=== PATIENT | female | born 1950 | race Caucasian/White ===

== ENCOUNTER 2016-11-25 04:15 | Inpatient (IN) | payer MEDICARE, OTHER ==
[2016-11-25] MEDS ORDERED: HYDROmorphone 1 MG/ML 1 ML SYRINGE IVP STA ×3 (05:09→08:04)
[2016-11-25 05:49] LABS: Basophils # (A) 0.1 k/uL (0-0.2); Basophils % (A) 0 %; CHCM 33.9; Eosinophils # (A) 0.2 k/uL (0-0.7); Eosinophils % (A) 2 %; HCT 41.8 % (34.0-46.0); HDW 2.54; HGB 13.9 gm/dL (11.4-16.0); Luc # (Auto) 0.12; Luc % (Auto) 1; Lymphocytes # (A) 1.8 k/uL (1.0-4.8); Lymphocytes % (A) 14 %; MCH 30.5 pg (25.0-35.0); MCHC 33.2 g/dL (31.0-37.0); MCV 91.8 fL (80.0-100.0); Mean Platelet Volume 7.6; Monocytes # (A) 0.5 k/uL (0-1.0); Monocytes % (A) 4 %; Neutrophils # (A) 10.6 k/uL (1.3-7.7); Neutrophils % (A) 79 %; RBC 4.56 m/uL (3.80-5.40); RDW 13.1 % (11.5-15.5); WBC 13.4 k/uL (3.8-10.6); WBC (Perox) 13.39
[2016-11-25 06:02] LABS: ALT 125 U/L (9-52); AST 67 U/L (14-36); Alkaline Phosphatase 174 U/L (38-126); Amylase <30 U/L (30-110); Anion Gap 15 mmol/L; Blood Urea Nitrogen 15 mg/dL (7-17); Calcium 9.7 mg/dL (8.4-10.2); Carbon Dioxide 22 mmol/L (22-30); Chloride 106 mmol/L (98-107); Glucose 124 mg/dL (74-99); Non-African American GFR(MDRD) >60 (>60 ml/min/1.73 sqM); Potassium 4.1 mmol/L (3.5-5.1); Sodium 143 mmol/L (137-145); Total Bilirubin 0.8 mg/dL (0.2-1.3)
--- NOTE | 2016-11-25 06:19 | CT ---
EXAMINATION TYPE: CT abdomen pelvis wo con DATE OF EXAM: 11/25/2016 5:51 AM COMPARISON: NONE HISTORY: epigastric pain, renal stone protocol CT DLP: 563.00 mGycm Automated exposure control for dose reduction was used. TECHNIQUE: Helical acquisition of images was performed from the lung bases through the pelvis. FINDINGS: LUNG BASES: No significant abnormality is appreciated. LIVER/GB: No significant abnormality is appreciated in the liver. Moderate fluid distention of gallbl adder is noted.. PANCREAS: No significant abnormality is seen. SPLEEN: No significant abnormality is seen. ADRENALS: No significant abnormality is seen. KIDNEYS: Right kidney showed multiple cystic changes in the right renal pelvis and are most likely related to peripelvic cysts rather than hydronephrosis. Right ureter is not distended. No definite obstructing o r nonobstructing opaque stones are noted in the right kidney and right ureter. Left kidney showed cystic changes in the left renal pelvis and are most likely related to parapelvic cysts rather than hydronephrosis. The left ureter is not distended. No definite obstructing opaque st ones are noted in the left kidney and left ureter. RETROPERITONEAL ADENOPATHY: None visualized . Diffuse atherosclerotic calcification is noted in the abdominal aorta and iliac arteries. REPRODUCTIVE ORGANS: Uterus appears grossly unremarkable. Ovaries are not visualized. URINARY BLADDER: No significant abnormality is seen. PELVIC ADENOPATHY: None visualized. OSSEOUS STRUCTURES: Mild degenerative changes are present in the thoracolumbar spine. BOWEL: There is moderate to large amount of fecal material in the colon and patient is constipated. Appendix is not well visualized. Mild fluid distention of small bowel loops is noted without signific ant obstruction. OTHER: Small fat-containing umbilical hernia is noted. IMPRESSION: 1. BOTH KIDNEYS SHOWED CYSTIC CHANGES AND ARE MOST LIKELY RELATED TO LARGE PERIPELVIC CYSTS RATHER TH AN HYDRONEPHROSIS WITHOUT DEFINITE OPAQUE NONOBSTRUCTING OR OBSTRUCTING STONES. BILATERAL URETERS ARE NOT FLUID DISTENDED. A CT SCAN WITH IV CONTRAST WOULD BE BENEFICIAL IN THE EVALUATION TO EXCLUDE HYD RONEPHROSIS AND EVALUATION OF PERIPELVIC CYSTS.. 2. MODERATE FLUID DISTENTION OF GALLBLADDER IS NOTED. 3. PATIENT IS CONSTIPATED.
--- NOTE | 2016-11-25 06:58 | ED ---
Abdominal Pain HPI - General Source: patient, family Mode of arrival: ambulatory Limitations: no limitations - History of Present Illness MD Complaint: abdominal pain Onset/Timin -: hour(s) Location: RUQ, epigastric Radiation: back Severity: severe Quality: aching, sharp Consistency: constant Improves With: nothing Worsens With: nothing Associated Symptoms: other (Bloating) <Huang Sky - Last Filed: 11/25/16 06:58> <Kirk Rodriguez - Last Filed: 11/25/16 09:06> - General Chief Complaint: Abdominal Pain Stated Complaint: Abdominal Pain Time Seen by Provider: 11/25/16 05:04 - History of Present Illness Initial Comments: Patient's a 65-year-old woman who presents with pain in the upper abdomen and right upper quadrant that radiates to her back. The patient states that it started around 7 while she was watching television. The patient states that she had a similar episode of this between 2 and 3 years ago and was told that this was related to her gallbladder. The patient denies fever or chills. She has not had vomiting. No change in bowel movements, the last of which was tonight and there was no blood. No change in urination. There is no chest pain , shortness of breath, or diaphoresis. (Huang Sky) - Related Data Home Medications Medication Instructions Recorded Confirmed Multivitamins, Thera [Multivitamin] 1 tab PO DAILY 09/19/16 11/25/16 Oxybutynin Chloride [Ditropan XL] 15 mg PO HS 09/19/16 11/25/16 Pantoprazole Sodium [Protonix] 40 mg PO HS 09/19/16 11/25/16 Thyroid,Pork [Nature-Throid] 65 mg PO HS 09/19/16 11/25/16 Aspirin EC [Ecotrin Low Dose] 81 mg PO DAILY 10/14/16 11/25/16 Biotin 10,000 mcg PO DAILY 10/14/16 11/25/16 amLODIPine BESYLATE [Norvasc] 2.5 mg PO DAILY 11/25/16 11/25/16 Previous Rx's Medication Instructions Recorded Atorvastatin [Lipitor] 80 mg PO HS #30 tab 09/23/16 Nitroglycerin Sl Tabs [Nitrostat] 0.4 mg SUBLINGUAL Q5M PRN #25 tab 09/23/16 Prasugrel [Effient] 10 mg PO DAILY #30 tab 09/23/16 Allergies Allergy/AdvReac Type Severity Reaction Status Date / Time ibuprofen Allergy Itching Verified 11/25/16 04:41 sulfamethoxazole Allergy Rash/Hives Verified 11/25/16 04:41 [From Bactrim] trimethoprim [From Bactrim] Allergy Rash/Hives Verified 11/25/16 04:41 Review of Systems ROS Other: All systems not noted in ROS Statement are negative. Constitutional: Denies: fever, chills Respiratory: Denies: cough, dyspnea Cardiovascular: Denies: chest pain, palpitations, edema Gastrointestinal: Reports: as per HPI, abdominal pain. Denies: vomiting, diarrhea, constipation, melena, hematochezia Genitourinary: Denies: dysuria, hematuria Musculoskeletal: Reports: as per HPI, back pain Skin: Denies: rash Neurological: Denies: headache, weakness, numbness <Huang Sky - Last Filed: 11/25/16 06:58> ROS Other: All systems not noted in ROS Statement are negative. <Kirk Rodriguez - Last Filed: 11/25/16 09:06> ROS Statement: Those systems with pertinent positive or pertinent negative responses have been documented in the HPI. Past Medical History Past Medical History: Coronary Artery Disease (CAD), Cancer, GERD/Reflux, Myocardial Infarction ([place]), Osteoarthritis (OA), Pneumonia, Thyroid Disorder Additional Past Medical History / Comment(s): 09/19/16 coronary stents x3, T- cell lymphoma, 10/08/16 left knee drained Last Myocardial Infarction Date:: 09/19/16 History of Any Multi-Drug Resistant Organisms: None Reported Past Surgical History: Joint Replacement, Tubal Ligation Additional Past Surgical History / Comment(s): left knee, left shoulder, left breast removed scar tissue from breast reduction 08/22/16. Lens implants to bilat. eyes. Novasure Past Anesthesia/Blood Transfusion Reactions: No Reported Reaction Past Psychological History: No Psychological Hx Reported Smoking Status: Former smoker Past Alcohol Use History: None Reported Past Drug Use History: None Reported - Past Family History Mother Family Medical History: Dementia Father Family Medical History: Cancer Additional Family Medical History / Comment(s): colon-surgery <Huang Sky - Last Filed: 11/25/16 06:58> General Exam Limitations: no limitations General appearance: alert, in distress, obese Head exam: Present: atraumatic, normocephalic Eye exam: Present: normal appearance. Absent: scleral icterus, conjunctival injection ENT exam: Present: normal oropharynx Neck exam: Present: normal inspection, full ROM Respiratory exam: Present: normal lung sounds bilaterally. Absent: respiratory distress, wheezes, rales, rhonchi, stridor Cardiovascular Exam: Present: regular rate, normal rhythm, normal heart sounds. Absent: systolic murmur, diastolic murmur, rubs, gallop GI/Abdominal exam: Present: soft, tenderness, normal bowel sounds. Absent: distended, guarding, rebound, mass, pulsatile mass, hernia Extremities exam: Present: normal inspection, normal capillary refill. Absent: pedal edema, calf tenderness Back exam: Present: normal inspection. Absent: CVA tenderness (R), CVA tenderness (L) Neurological exam: Present: alert Skin exam: Present: warm, dry, intact, normal color. Absent: rash, cyanosis, diaphoretic, erythema, petechiae, pallor, mottled <Huang Sky - Last Filed: 11/25/16 06:58> Medical Decision Making - Lab Data Result diagrams: 11/25/16 05:43 11/25/16 05:43 <Huang Sky - Last Filed: 11/25/16 06:58> - Lab Data Result diagrams: 11/25/16 05:43 11/25/16 05:43 <Kirk Rodriguez - Last Filed: 11/25/16 09:06> - Medical Decision Making I went back into reevaluate the patient patient continued to have intermittent abdominal pain. Patient also urinary tract infection which I gave her Rocephin for. But because the pain was coming back so so continuously and severely I felt that the patient needed to be admitted and seen by a surgeon. (Kirk Rodriguez) - Lab Data Lab Results 11/25/16 11/25/16 11/25/16 Range/Units 05:43 05:43 05:43 WBC 13.4 H (3.8-10.6) k/uL RBC 4.56 (3.80-5.40) m/uL Hgb 13.9 (11.4-16.0) gm/dL Hct 41.8 (34.0-46.0) % MCV 91.8 (80.0-100.0) fL MCH 30.5 (25.0-35.0) pg MCHC 33.2 (31.0-37.0) g/dL RDW 13.1 (11.5-15.5) % Plt Count 241 (150-450) k/uL Neutrophils % 79 % Lymphocytes % 14 % Monocytes % 4 % Eosinophils % 2 % Basophils % 0 % Neutrophils # 10.6 H (1.3-7.7) k/uL Lymphocytes # 1.8 (1.0-4.8) k/uL Monocytes # 0.5 (0-1.0) k/uL Eosinophils # 0.2 (0-0.7) k/uL Basophils # 0.1 (0-0.2) k/uL Sodium 143 (137-145) mmol/L Potassium 4.1 (3.5-5.1) mmol/L Chloride 106 (98-107) mmol/L Carbon Dioxide 22 (22-30) mmol/L Anion Gap 15 mmol/L BUN 15 (7-17) mg/dL Creatinine 0.63 (0.52-1.04) mg/dL Est GFR (MDRD) Af Amer >60 (>60 ml/min/1.73 sqM) Est GFR (MDRD) Non-Af >60 (>60 ml/min/1.73 sqM) Glucose 124 H (74-99) mg/dL Calcium 9.7 (8.4-10.2) mg/dL Total Bilirubin 0.8 (0.2-1.3) mg/dL AST 67 H (14-36) U/L ALT 125 H (9-52) U/L Alkaline Phosphatase 174 H (38-126) U/L Troponin I <0.012 (0.000-0.034) ng/mL Total Protein 7.0 (6.3-8.2) g/dL Albumin 4.5 (3.5-5.0) g/dL Amylase <30 L (30-110) U/L Lipase 80 (23-300) U/L Urine Color Urine Appearance (Clear) Urine pH (5.0-8.0) Ur Specific [place] (1.001-1.035) Urine Protein (Negative) Urine Glucose (UA) (Negative) Urine Ketones (Negative) Urine Blood (Negative) Urine Nitrate (Negative) Urine Bilirubin (Negative) Urine Urobilinogen (<2.0) mg/dL Ur Leukocyte Esterase (Negative) Urine RBC (0-5) /hpf Urine WBC (0-5) /hpf Ur Squamous Epith Cells (0-4) /hpf Amorphous Sediment (None) /hpf Urine Mucus (None) /hpf 11/25/16 Range/Units 06:50 WBC (3.8-10.6) k/uL RBC (3.80-5.40) m/uL Hgb (11.4-16.0) gm/dL Hct (34.0-46.0) % MCV (80.0-100.0) fL MCH (25.0-35.0) pg MCHC (31.0-37.0) g/dL RDW (11.5-15.5) % Plt Count (150-450) k/uL Neutrophils % % Lymphocytes % % Monocytes % % Eosinophils % % Basophils % % Neutrophils # (1.3-7.7) k/uL Lymphocytes # (1.0-4.8) k/uL Monocytes # (0-1.0) k/uL Eosinophils # (0-0.7) k/uL Basophils # (0-0.2) k/uL Sodium (137-145) mmol/L Potassium (3.5-5.1) mmol/L Chloride (98-107) mmol/L Carbon Dioxide (22-30) mmol/L Anion Gap mmol/L BUN (7-17) mg/dL Creatinine (0.52-1.04) mg/dL Est GFR (MDRD) Af Amer (>60 ml/min/1.73 sqM) Est GFR (MDRD) Non-Af (>60 ml/min/1.73 sqM) Glucose (74-99) mg/dL Calcium (8.4-10.2) mg/dL Total Bilirubin (0.2-1.3) mg/dL AST (14-36) U/L ALT (9-52) U/L Alkaline Phosphatase (38-126) U/L Troponin I (0.000-0.034) ng/mL Total Protein (6.3-8.2) g/dL Albumin (3.5-5.0) g/dL Amylase (30-110) U/L Lipase (23-300) U/L Urine Color Yellow Urine Appearance Cloudy H (Clear) Urine pH 5.0 (5.0-8.0) Ur Specific [place] 1.023 (1.001-1.035) Urine Protein Trace H (Negative) Urine Glucose (UA) Negative (Negative) Urine Ketones Negative (Negative) Urine Blood Negative (Negative) Urine Nitrate Positive H (Negative) Urine Bilirubin Negative (Negative) Urine Urobilinogen <2.0 (<2.0) mg/dL Ur Leukocyte Esterase Large H (Negative) Urine RBC 7 H (0-5) /hpf Urine WBC 9 H (0-5) /hpf Ur Squamous Epith Cells 3 (0-4) /hpf Amorphous Sediment Rare H (None) /hpf Urine Mucus Occasional H (None) /hpf Disposition <Huang Sky - Last Filed: 11/25/16 06:58> Time of Disposition: 09:03 <Kirk Rodriguez - Last Filed: 11/25/16 09:06> Clinical Impression: Abdominal pain, Urinary tract infection Disposition: ADMITTED IP TO THIS HOSP Referrals: James Son MD [Primary Care Provider] - 1-2 days
[2016-11-25 07:18] LABS: Amorphous Sediment,Urine Rare /hpf; Appearance,Urine Cloudy (Clear); Bilirubin,Urine Negative (Negative); Glucose,Urine (UA) Negative (Negative); Ketones,Urine Negative (Negative); Leukocyte Esterase,Urine Large (Negative); Mucus,Urine Occasional /hpf; Nitrite,Urine Positive (Negative); Particle Count 17046; Protein,Urine Trace (Negative); RBC,Urine 7 /hpf (0-5); Specific Gravity,Urine 1.023 (1.001-1.035); Squamous Epithelial Cell,Urine 3 /hpf (0-4); UA Billing (MACRO vs. MICRO) MICRO; Urobilinogen,Urine <2.0 mg/dL (<2.0); WBC,Urine 9 /hpf (0-5)
--- NOTE | 2016-11-25 08:12 | US ---
EXAMINATION TYPE: US abdomen limited DATE OF EXAM: 11/25/2016 7:55 AM COMPARISON: on PACS CLINICAL HISTORY: Pain, attention RUQ. Epigastric pain EXAM MEASUREMENTS: Liver Length: 14.0 cm Gallbladder Wall: 0.2 cm CBD: 0.4 cm Right Kidney: 9.7 x 6.1 x 5.7 cm TECHNOLOGIST IMPRESSION: Pancreas: echogenic, tail not well seen due to overlying bowel gas Liver: wnl Gallbladder: multiple mobile echogenic foci Evidence for sonographic Burns's sign: neg CBD: wnl Right Kidney: multiple cystic lesions in medial hilum, largest = 2.1 x 1.1 cm . Hydronephrosis is n ot identified. IMPRESSION: 1. Cholelithiasis. 2. Right renal peripelvic cysts.
[2016-11-25] MEDS ORDERED: SODIUM CHLORIDE 0.9% 1,000 ML IV ONE ×2 (08:42→09:04)
[2016-11-25] MEDS ORDERED: ONDANSETRON 4 MG/2 ML VIAL IVP PRN (09:05)
[2016-11-25 10:14] VITALS: BMI 33.3
[2016-11-25] MEDS: HYDROmorphone 1 MG/ML 1 ML SYRINGE IVP PRN (12:45)
--- NOTE | 2016-11-25 13:44 | P.GSCN ---
History of Present Illness Consult date: 11/25/16 Reason for Consult: Epigastric and right upper quadrant abdominal pain Requesting physician: Manuelito Wilkinson History of present illness: The patient is a 65-year-old female who comes with history of coronary artery disease with 3 stents placed in September 2016. She reports known history of gallstones which occurred many years ago. At that time, she avoid surgical intervention for fear of postcholecystectomy diarrhea. She has a strong family history of gallbladder disease in her mother including her daughter and granddaughter, all of whom needed a cholecystectomy. She reports severe epigastric including right upper quadrant abdominal pain that radiated to her back after eating chili yesterday. She has been unable to take her medications morning which includes Effient for her cardiac stent. She reports occasional constipation. No recent blood in stools. She has known history of gastroesophageal reflux disease and takes Protonix daily including a history of hiatal hernia. With her ultrasound findings demonstrating gallstones, Gen. surgery is consulted. Review of Systems CONSTITUTIONAL: Denies any fever or chills. Weight loss of 45 pounds intentional in 1 year. She struggles with obesity. HEENT: Denies any trouble with vision, hearing or nosebleeds. No difficulty swallowing. LYMPHATIC: The patient denies any lumps and bumps around the neck. ENDOCRINE: Has thyroid disorders. Denies any blood sugar glucose intolerance. RESPIRATORY: Denies pneumonia. Denies any troubles with breathing or dyspnea on exertion. CARDIOVASCULAR: Previous history of heart attack with cardiac stent placement September 2016. She reports recent cardiac spasm 10/14/2016. GASTROINTESTINAL: Has heart burn, constipation. No recent bright red blood per rectum. Takes Protonix for GERD. Has history of hiatal hernia. GENITOURINARY: Denies any blood in urine or increased urinary frequency. MUSCULOSKELETAL: Has back pain, stiffness or joint arthritis. NEUROLOGIC: Denies any numbness or tingling along the distal extremities. No seizure disorders or headaches. PSYCHIATRIC: Denies depression or suidical ideation. HEMATOLOGIC: Denies any abnormal bleeding or bruising. Past Medical History Past Medical History: Coronary Artery Disease (CAD), Cancer, GERD/Reflux, Myocardial Infarction ([place]), Osteoarthritis (OA), Thyroid Disorder Additional Past Medical History / Comment(s): 09/19/16 coronary stents x3, T- cell lymphoma, 10/08/16 left knee drained Last Myocardial Infarction Date:: 09/19/16 History of Any Multi-Drug Resistant Organisms: None Reported Past Surgical History: Joint Replacement, Tubal Ligation Additional Past Surgical History / Comment(s): left knee, left shoulder, left breast removed scar tissue from breast reduction 08/22/16. Lens implants to bilat. eyes. Novasure. EGD Past Anesthesia/Blood Transfusion Reactions: No Reported Reaction Past Psychological History: No Psychological Hx Reported Smoking Status: Former smoker Past Alcohol Use History: None Reported Past Drug Use History: None Reported - Past Family History Mother Family Medical History: Dementia Father Family Medical History: Cancer Additional Family Medical History / Comment(s): colon-surgery Medications and Allergies Home Medications Medication Instructions Recorded Confirmed Type Multivitamins, Thera [Multivitamin] 1 tab PO DAILY 09/19/16 11/25/16 History Oxybutynin Chloride [Ditropan XL] 15 mg PO HS 09/19/16 11/25/16 History Pantoprazole Sodium [Protonix] 40 mg PO HS 09/19/16 11/25/16 History Thyroid,Pork [Nature-Throid] 65 mg PO HS 09/19/16 11/25/16 History Aspirin EC [Ecotrin Low Dose] 81 mg PO DAILY 10/14/16 11/25/16 History Biotin 10,000 mcg PO DAILY 10/14/16 11/25/16 History amLODIPine BESYLATE [Norvasc] 2.5 mg PO DAILY 11/25/16 11/25/16 History Allergies Allergy/AdvReac Type Severity Reaction Status Date / Time ibuprofen Allergy Itching Verified 11/25/16 12:08 sulfamethoxazole Allergy Rash/Hives Verified 11/25/16 12:08 [From Bactrim] trimethoprim [From Bactrim] Allergy Rash/Hives Verified 11/25/16 12:08 Surgical - Exam Vital Signs Temp Pulse Resp BP Pulse Ox 97.4 F L 65 18 170/77 99 11/25/16 04:39 11/25/16 04:39 11/25/16 04:39 11/25/16 04:39 11/25/16 04:39 GENERAL: Well developed and in no acute distress. Pleasant. HEENT: No sclera icterus. Extraocular movements grossly intact. Moist buccal mucosa. Head is atraumatic, normocephalic. Hears conversational speech. No nasal drainage. NECK: Supple without lymphadenopathy. No JV distention. CHEST: Non-labored respirations and equal bilateral excursions. CARDIOVASCULAR: Regular rate and rhythm. Palpable 2+ radial pulses. ABDOMEN: Soft. Nondistended. Had tenderness along her epigastrium. No peritonitis. MUSCULOSKELETAL: No clubbing, cyanosis or edema. NEUROLOGIC: No focal or lateralizing signs. PSYCH: Appropriate affect. Alert and oriented to person, place and time. Results - Labs 11/25/16 05:43 11/25/16 05:43 - Imaging US - abdomen: report reviewed, image reviewed (FIndings consistent with multiple gallstones) Assessment and Plan (1) Acute cholecystitis due to biliary calculus Status: Acute (2) Coronary artery disease Status: Chronic (3) Stented coronary artery Status: Chronic (4) Hiatal hernia Status: Chronic (5) Weight loss Status: Chronic (6) GERD (gastroesophageal reflux disease) Status: Chronic (7) Family history of gallbladder disease Status: Chronic (8) Antiplatelet or antithrombotic long-term use Status: Chronic (9) History of myocardial infarction Status: Chronic (10) Obesity (BMI 30.0-34.9) Status: Chronic (11) Epigastric abdominal pain Status: Acute (12) Right upper quadrant abdominal pain Status: Acute (13) Leukocytosis Status: Acute Plan: 1. She is on Effient and has acute cholecystitis. Recommend continue IV antibiotics. 2. Recommend consultation to cardiology as she had just seen a gripper installer with the last 3 weeks. 3. Recommend urgent surgery performed preferable before discharge. She is on antiplatelet therapy for which 1 year of therapy was discussed between the patient and her gripper installer otherwise through September 2017. 4. Risk of gallstones including pancreatitis and biliary obstruction were also reviewed in detail. 5. In the interim low-fat diet. 6. She is high risk of bleeding with surgery as her presentation is urgent from her acute cholecystitis. 7. Will follow pending recommendations from cardiology,whom her gripper installer is Dr. Wood. Thank you for allowing me to participate in the care of your patient.
[2016-11-25] MEDS ORDERED: NITROGLYCERIN SL TABS 0.4 MG TAB SUBLINGUAL PRN (14:36)
[2016-11-25] MEDS ORDERED: PRASUGREL 10 MG TAB PO SCH (14:45)
--- NOTE | 2016-11-25 15:26 | P.PN ---
Progress Note - Text Discussed case with Dr. Wilkinson Patient had an acute myocardial infarction in the month of September,. A drug-eluting stent was placed. She's now on aspirin and Effient If it is clinically appropriate to operate on her within the next 2 months then preferably be performed on antiplatelet therapy High risk of stent thrombosis if antiplatelet agents stopped
--- NOTE | 2016-11-25 15:44 | P.PN ---
Progress Note - Text I was contacted by the patient's admitting attending upon consultation with senior biostatistician. The patient is high risk for thrombosis of her stent. Her abdominal pain has improved. She has high cardiac risk including high surgical risk at this time. Alternatives including transfer to a tertiary care center for reversal of Effient was also reviewed. In light of her cardiac history, I have placed patient on a no fat diet with literature dispensed. This should decrease risk for additional attacks. Appreciate cardiology input. May start clear liquid diet low fat.
[2016-11-25] MEDS: ENOXAPARIN 40 MG/0.4 ML SYRINGE SQ SCH (16:08)
[2016-11-25] MEDS: amLODIPine 2.5 MG TAB PO SCH (16:08)
[2016-11-25] MEDS: PRASUGREL 10 MG TAB PO SCH (16:08)
--- NOTE | 2016-11-25 16:24 | HP ---
DATE OF ADMISSION: 11/25/2016 PRESENTING COMPLAINT: Epigastric pain. HISTORY OF PRESENTING COMPLAINT: This is a very pleasant 65-year-old patient of Dr. Son. Patient initially presented on 09/20/2016 and 09/22/2016, underwent successful stenting of the mid-left circumflex following acute inferior ST elevation myocardial infarction. Patient had presented again on 10/15/2016, and because of chest pain, underwent a repeat cardiac catheterization. No further intervention was done. This was done by Dr. Wood. Patient's stable medical conditions include GERD, hypothyroidism, urinary stress incontinence, obesity. Patient presents with one day of increasing epigastric pain, rather constant aching with no short of breath. No dizziness. No sweating, nausea. GERD has been bothering her and patient also been having pain on the right part of the abdomen, which is a bowel or urine. No vomiting. No fever, no precordial pain. REVIEW OF SYSTEMS: CONSTITUTIONAL: Tired. HEENT: None. RESPIRATORY: None. CARDIOVASCULAR: None. GASTROINTESTINAL: As above. GENITOURINARY: None. MUSCULOSKELETAL: None. DERMATOLOGICAL: None. HEMATOLOGICAL: None. LYMPHATICS: None. PSYCHIATRY: None. NEUROLOGICAL: None. Past history of myocardial infarction and with intervention to the RCA and circumflex in September of 2016, GERD, chronic hypothyroidism, chronic urinary stress incontinence. Obesity body mass index of 36.1. PAST SURGICAL HISTORY: Joint replacement, tubal ligation in the left knee, left shoulder, left breast removed, scar tissue from breast reduction, lens implant bilateral eyes. SOCIAL HISTORY: Patient is , stopped smoking about 10 - 12 days ago. FAMILY HISTORY: Reviewed, noncontributory to presentation. HOME MEDICATIONS: 1. Norvasc 2.5 p.o. daily. 2. Nature-Throid 65 mg p.o. q.h.s. 3. Effient 10 mg p.o. daily. 4. Protonix 40 mg q.h.s. 5. Ditropan XL 50 mg p.o. q.h.s. 6. Nitrostat 0.4 sublingual q.5 p.r.n. 7. Multivitamin 1 tablet p.o. daily. 8. Lipitor 80 mg p.o. q.h.s. 9. Aspirin 81 mg p.o. daily. Allergies to IBUPROFEN and BACTRIM. On examination, vital signs on presentation: Temperature 97.4, pulse 65, respiration 18, blood pressure 170/77, pulse ox 99% on room air. GENERAL APPEARANCE: Well built, BMI of 32.3, weak, tired-appearing. EYES: Pupils equal, conjunctivae normal. HEENT: Oral cavity normal. NECK: JVD not raised. Mass not palpable. Respiratory effort normal. LUNGS: Fair air entry. CARDIOVASCULAR: First and second sounds normal. No edema. ABDOMEN: Soft, mild epigastric tenderness. No obvious epigastric pain. Mild tenderness. No guarding or rigidity. Liver and spleen not palpable. LYMPHATIC: No lymph node palpable in neck or axillae. PSYCHIATRY: Alert and oriented x3. Mood and affect normal. NEUROLOGICAL: Pupils equal. Cranial nerves grossly intact. Power and sensation grossly intact. INVESTIGATIONS: White count 13.4, hemoglobin 13.9, potassium 4.1. Creatinine is normal, AST 67, ALT 125, alk phos 174, it may be noted that patient's LFTs including alk phos was normal on 10/14/2016. Ultrasound of the abdomen shows gallstones. CT scan of the abdomen and pelvis, both the kidneys have multiple cystic changes and gallbladder shows moderate fluid distention. ASSESSMENT: 1. Probably acute gallstone cholecystitis causing some elevation of liver enzymes. 2. Peptic ulcer disease, possible. 3. Chronic gastritis. 4. Coronary artery disease with stent to the right coronary artery and circumflex in September of 2016. 5. Chronic hypothyroidism. 6. Urinary stress incontinence, chronic. 7. Obesity, body mass index of more than 36. PLAN: Patient is on IV ceftriaxone and IV fluids. Home medications are resumed. Patient aspirin will be held. Effient is to continue. Given the acute presentation, even though cardiac, patient will need to proceed with surgery. If medically stable, will do the same. Care was discussed with the patient. [facility] was consulted, so was Cardiology.
[2016-11-25] MEDS: THYROID, PORK 30 MG TAB PO SCH (20:02)
[2016-11-25] MEDS: PANTOPRAZOLE 40 MG TABLET PO SCH (20:02)
[2016-11-25] MEDS: OXYBUTYNIN 15 MG TAB.ER.24 PO SCH (20:02)
[2016-11-25] MEDS ORDERED: ATORVASTATIN 80 MG TAB PO SCH (21:00)
[2016-11-26] MEDS: HYDROmorphone 1 MG/ML 1 ML SYRINGE IVP PRN ×2 (02:28→23:28)
[2016-11-26] MEDS ORDERED: ACETAMINOPHEN TAB 325 MG TAB PO PRN (09:49)
[2016-11-26] MEDS: amLODIPine 2.5 MG TAB PO SCH (09:57)
[2016-11-26] MEDS: PRASUGREL 10 MG TAB PO SCH (09:57)
[2016-11-26] MEDS: ENOXAPARIN 40 MG/0.4 ML SYRINGE SQ SCH (12:52)
--- NOTE | 2016-11-26 13:47 | P.PN ---
Subjective Principal diagnosis: Acute cholecystitis This 64-year-old female who had a stent placement in September of last year, is admitted to the hospital with findings of acute cholecystitis. Patient was seen by Dr. Connor and felt that patient should not stop her antiplatelet agents. He felt that patient should have surgery with antiplatelet agent on board, if she needs surgery for acute cholecystitis. Patient was treated conservatively with fluids and antibiotics. Patient is feeling much better now. Denies any abdominal pain. Denies any chest pain or shortness of breath. She is tolerating food. It appears that patient may be discharged home today. Patient may have follow-up with Dr. Doshi as an outpatient in one week Objective - Vital Signs Vital signs: Vital Signs Temp 98.4 F 11/26/16 07:00 Pulse 70 11/26/16 07:00 Resp 16 11/26/16 07:00 BP 132/62 11/26/16 07:00 Pulse Ox 98 11/26/16 07:00 Intake & Output 11/25/16 11/26/16 11/26/16 18:59 06:59 18:59 Intake Total 1550 480 Balance 1550 480 Weight 85.275 kg Intake: IV 1550 Sodium Chloride 0.9% 1, 500 000 ml @ 100 mls/hr IV . Q10H ONE Rx#:[id number] Sodium Chloride 0.9% 1, 1000 000 ml @ 999 mls/hr IV . Q1H1M ONE Rx#:[id number] cefTRIAXone 1,000 mg In 50 Sodium Chloride 0.9% 50 ml @ 100 mls/hr IVPB ONCE STA Rx#:[id number] Oral 480 Other: Voiding Method Toilet Toilet Toilet # Voids 1 3 - Exam GENERAL EXAM: Patient is alert and oriented and doesn't appear to be in any acute distress HEENT: Normocephalic. Normal reaction of pupils, equal size, normal range of extraocular motion. No erythema or exudates in the throat. NECK: No masses, no nuchal rigidity. CHEST: No chest wall deformity. LUNGS: Equal air entry with no crackles or wheeze. HEART: S1 and S2 normal with no audible mumurs or gallops. Regular rhythm, femorals equal on both sides.. ABDOMEN: No hepatosplenomegaly, normal bowel sounds, no guarding or rigidity. SKIN: No rashes CENTRAL NERVOUS SYSTEM: No focal deficits. EXTREMITIES: No cyanosis, clubbing or edema. - Labs CBC & Chem 7: 11/25/16 05:43 11/25/16 05:43 Labs: Microbiology - Last 24 Hours (Table) 11/25/16 09:25 Blood Culture Gram Stain - Preliminary Blood 11/25/16 09:25 Blood Culture - Preliminary Blood Assessment and Plan (1) Acute cholecystitis due to biliary calculus Status: Acute (2) Coronary artery disease Status: Chronic (3) History of myocardial infarction Status: Chronic (4) Obesity (BMI 30.0-34.9) Status: Chronic Plan: Patient is much stable. Denies any chest pain or shortness of breath. Abdominal pain resolved. Patient had breakfast today. Patient may be discharged home today. Follow-up with Dr. Doshi in one week
--- NOTE | 2016-11-26 14:27 | P.PN ---
Progress Note - Text Please see CREDIT REFERENCE CLERK's note. Patient's abdominal pain is resolved. May advance to low-fat diet soft diet. Surgical intervention may be deferred at this time. She may follow-up with me as an outpatient.
--- NOTE | 2016-11-26 14:38 | P.PN ---
Subjective 65-year-old female states abdominal pain "almost gone when being seen on rounds. Patient states is tolerating the low-fat diet. Patient reports no nausea vomiting. Patient does have a history of gallstones many years ago. Also has a positive family history for gallbladder disease patient has remained afebrile additionally the patient has a positive family history for coronary artery disease with a drug-eluting stent placed in which cardiology indicates patient needs to be on effient due to the drug-eluting stent. This will need to be discussed with the linux kernel developer and the patient this needs to be continued through September 2017. With a drug-eluting stent patient needs to be on antiplatelet therapy for at least a year. Objective - Vital Signs Vital signs: Vital Signs Temp 98.4 F 11/26/16 07:00 Pulse 70 11/26/16 07:00 Resp 16 11/26/16 07:00 BP 132/62 11/26/16 07:00 Pulse Ox 98 11/26/16 07:00 Intake & Output 11/25/16 11/26/16 11/26/16 18:59 06:59 18:59 Intake Total 1550 480 Balance 1550 480 Weight 85.275 kg Intake: IV 1550 Sodium Chloride 0.9% 1, 500 000 ml @ 100 mls/hr IV . Q10H ONE Rx#:[id number] Sodium Chloride 0.9% 1, 1000 000 ml @ 999 mls/hr IV . Q1H1M ONE Rx#:[id number] cefTRIAXone 1,000 mg In 50 Sodium Chloride 0.9% 50 ml @ 100 mls/hr IVPB ONCE STA Rx#:[id number] Oral 480 Other: Voiding Method Toilet Toilet Toilet # Voids 1 3 - Exam Physical exam 65-year-old female resting in bed appears in no acute distress Lungs essentially clear adequate air movement Heart S1-S2 audible and regular denying chest pain Abdomen soft not able to elicit any facial grimacing nontender not distended no stool no nausea vomiting Extremities no edema - Labs CBC & Chem 7: 11/25/16 05:43 11/25/16 05:43 Labs: Microbiology - Last 24 Hours (Table) 11/25/16 09:25 Blood Culture Gram Stain - Preliminary Blood 11/25/16 09:25 Blood Culture - Preliminary Blood Assessment and Plan Plan: 1) Acute cholecystitis due to biliary calculus Status: Acute (2) Coronary artery disease Status: Chronic (3) Stented coronary artery Status: Chronic (4) Hiatal hernia Status: Chronic (5) Weight loss Status: Chronic (6) GERD (gastroesophageal reflux disease) Status: Chronic (7) Family history of gallbladder disease Status: Chronic (8) Antiplatelet or antithrombotic long-term use Status: Chronic (9) History of myocardial infarction Status: Chronic (10) Obesity (BMI 30.0-34.9) Status: Chronic (11) Epigastric abdominal pain Status: Acute (12) Right upper quadrant abdominal pain Status: Acute #13 leukocytosis acute suspect reactive #14 a history of a drug-eluting stent to the coronary needs to be on antiplatelet therapy until September 2017 Plan From a surgical perspective the patient could be discharged withsurgical intervention warranted at this time patient will be followed in the outpatient setting by surgical service next week and Dr. Padgett's office Continue low-fat diet. Dietitian to see patient instructed patient on low-fat diet No further surgical recommendations at this time we'll see patient on an as- needed basis The above dictated assessment and findings were discussed with Dr. Padgett Impression and the plan of care have been dictated as directed. Erinn Hopkins nurse practitioner acting as a scribe for Dr. Weems
[2016-11-26 15:58] LABS: Basophils % (A) 0 %; CH 30.8; CHCM 33.1; Eosinophils # (A) 0.4 k/uL (0-0.7); Eosinophils % (A) 6 %; HCT 38.9 % (34.0-46.0); HDW 2.42; HGB 12.7 gm/dL (11.4-16.0); Luc # (Auto) 0.08; Luc % (Auto) 1; Lymphocytes # (A) 1.4 k/uL (1.0-4.8); Lymphocytes % (A) 24 %; MCH 30.6 pg (25.0-35.0); MCHC 32.7 g/dL (31.0-37.0); MCV 93.5 fL (80.0-100.0); Mean Platelet Volume 7.3; Monocytes # (A) 0.4 k/uL (0-1.0); Monocytes % (A) 7 %; Neutrophils # (A) 3.7 k/uL (1.3-7.7); Neutrophils % (A) 62 %; RBC 4.15 m/uL (3.80-5.40); RDW 13.2 % (11.5-15.5); WBC 5.9 k/uL (3.8-10.6); WBC (Perox) 6.23
[2016-11-26 16:07] LABS: ALT 614 U/L (9-52); AST 300 U/L (14-36); Alkaline Phosphatase 202 U/L (38-126); Anion Gap 8 mmol/L; Blood Urea Nitrogen 8 mg/dL (7-17); Calcium 8.9 mg/dL (8.4-10.2); Carbon Dioxide 31 mmol/L (22-30); Chloride 105 mmol/L (98-107); Glucose 94 mg/dL (74-99); Non-African American GFR(MDRD) >60 (>60 ml/min/1.73 sqM); Potassium 3.9 mmol/L (3.5-5.1); Sodium 144 mmol/L (137-145); Total Bilirubin 0.8 mg/dL (0.2-1.3); Total Protein 6.1 g/dL (6.3-8.2)
[2016-11-26] MEDS: SODIUM CHLORIDE 0.9% 1,000 ML IV SCH (16:24)
[2016-11-26] MEDS: THYROID, PORK 30 MG TAB PO SCH (20:24)
[2016-11-26] MEDS: OXYBUTYNIN 15 MG TAB.ER.24 PO SCH (20:24)
[2016-11-26] MEDS: PANTOPRAZOLE 40 MG TABLET PO SCH (20:24)
[2016-11-26] MEDS ORDERED: IV VANCOMYCIN PER PHARMACY 1 EACH MISC MISCELLANE PRN (20:30)
[2016-11-26] MEDS: VANCOMYCIN 1,500 MG in SODIUM CHLORIDE 0.9% 250 ML IVPB SCH (22:04)
[2016-11-26 22:25] VITALS: TEMP 98.2
--- NOTE | 2016-11-26 22:44 | PN ---
DATE OF SERVICE: 11/26/2016 PRESENTING COMPLAINT: Epigastric pain. INTERVAL HISTORY: This patient with known coronary artery disease with stenting 2 months ago presented with acute gallstone cholecystitis. Patient was put on antibiotics. Abdominal pain has actually resolved, but LFTs have gone up. Dr. Padgett at this point will not do the surgery, as patient remains on Effient. Patient's blood cultures are also growing Gram-positive cocci. No nausea or vomiting. Clinically patient otherwise feels well. Review of systems is done for constitutional, cardiovascular, GI, pulmonary; relevant findings as above. Current medications are reviewed, including IV ceftriaxone. On examination, temperature 98.4, pulse 70, respiration 16, blood pressure 130/62. Pulse ox 98% on room air. INVESTIGATIONS: White count 5.9, potassium 3.9. AST 300. ALT 614. Bilirubin 0.8. Microbiology shows blood cultures growing Gram-positive cocci in chains and clusters both. ASSESSMENT: 1. Acute cholecystitis with clinical improvement. At the same time, liver enzymes have gone up. This could be a bit lagging behind. Clinically there is no right upper quadrant pain. It may be noted that patient is also on Lipitor. 2. Positive blood cultures; cannot ignore in the setting of acute cholecystitis. 3. Chronic gastritis. 4. Coronary artery disease with stent to the right coronary artery and circumflex in September 2016. 5. Chronic hypothyroidism. 6. Urinary stress incontinence, chronic. 7. Obesity; body mass index of more than 36. PLAN: At this point will continue with IV fluids and ceftriaxone. Repeat LFTs in the morning. Repeat set of cultures were done. Will get ID opinion. Care was discussed with the patient, who is very keen to go home, but I told her the importance of the liver enzymes and the positive blood cultures. Will follow.
[2016-11-27] MEDS: HYDROmorphone 1 MG/ML 1 ML SYRINGE IVP PRN (04:25)
[2016-11-27] MEDS: VANCOMYCIN 1,500 MG in SODIUM CHLORIDE 0.9% 250 ML IVPB SCH (05:14)
[2016-11-27] MEDS: SODIUM CHLORIDE 0.9% 1,000 ML IV SCH (05:46)
[2016-11-27 07:51] VITALS: BP 141/63; PULSE 67; RESP 18
[2016-11-27 08:38] LABS: Basophils # (A) 0.1 k/uL (0-0.2); Basophils % (A) 1 %; CH 30.7; CHCM 32.4; Eosinophils # (A) 0.4 k/uL (0-0.7); Eosinophils % (A) 5 %; HCT 39.7 % (34.0-46.0); HDW 2.47; HGB 12.5 gm/dL (11.4-16.0); Luc # (Auto) 0.11; Luc % (Auto) 2; Lymphocytes # (A) 1.7 k/uL (1.0-4.8); Lymphocytes % (A) 25 %; MCH 29.9 pg (25.0-35.0); MCHC 31.4 g/dL (31.0-37.0); MCV 95.2 fL (80.0-100.0); Mean Platelet Volume 7.9; Monocytes # (A) 0.4 k/uL (0-1.0); Monocytes % (A) 7 %; Neutrophils % (A) 61 %; RBC 4.17 m/uL (3.80-5.40); RDW 13.1 % (11.5-15.5); WBC 6.7 k/uL (3.8-10.6); WBC (Perox) 6.59
[2016-11-27 08:44] LABS: ALT 433 U/L (9-52); AST 142 U/L (14-36); Alkaline Phosphatase 186 U/L (38-126); Anion Gap 9 mmol/L; Blood Urea Nitrogen 11 mg/dL (7-17); Calcium 8.9 mg/dL (8.4-10.2); Carbon Dioxide 26 mmol/L (22-30); Chloride 108 mmol/L (98-107); Glucose 94 mg/dL (74-99); Non-African American GFR(MDRD) >60 (>60 ml/min/1.73 sqM); Potassium 4.1 mmol/L (3.5-5.1); Sodium 143 mmol/L (137-145); Total Bilirubin 0.8 mg/dL (0.2-1.3)
[2016-11-27] MEDS: ENOXAPARIN 40 MG/0.4 ML SYRINGE SQ SCH (09:12)
[2016-11-27] MEDS: PRASUGREL 10 MG TAB PO SCH (09:13)
[2016-11-27] MEDS: amLODIPine 2.5 MG TAB PO SCH (09:13)
--- NOTE | 2016-11-27 14:06 | CONS ---
DATE OF CONSULTATION: 11/27/2016 Reason for consultation is positive blood culture. HISTORY OF PRESENT ILLNESS: The patient is a 65-year-old female presenting to the ER at [facility] on 11/25/2016 in the morning with chief complaints of abdominal pain. Pain has been mostly in the epigastric area. It started the evening before, pain was sharp and almost 10/10 by the time she presented to the ER. There was no significant radiation of the pain; however, started having vomiting by the time she got to the ER. The patient denies having any diarrhea. The patient did not have any fever. When she presented to the ER, the patient did have an elevated white count 13.4. The patient did have a CT of abdomen and pelvis, which did show evidence of a moderate distention of the gallbladder and no significant abnormality was noticed. The patient did have an ultrasound of the abdomen which did show cholelithiasis and right renal peripelvic cyst but no features of acute cholecystitis. The patient did have blood cultures obtained which are showing alpha hemolytic Streptococcus and Coagulase negative Staph today. When the blood culture reported positive yesterday, I was asked to see the patient for further recommendation regarding antibiotic therapy. We did empirically add the vancomycin and did order her repeat blood cultures which are currently pending. As of this morning, the patient is feeling better. Her abdominal pain has improved. She has been tolerating a regular diet. The patient denies having nausea or vomiting. Denies any chest pain or shortness of breath or cough and is insisting on going home. REVIEW OF SYSTEMS: CONSTITUTIONAL: Positive for weakness. No fever. EYES: No complaint. ENT: No complaint. RESPIRATORY: No complaint. CARDIOVASCULAR: No complaint. GENITOURINARY: No complaint. GASTROINTESTINAL: As per HPI. MUSCULOSKELETAL: No complaint. INTEGUMENTARY: No complaint. PSYCHOLOGICAL: No complaint. ENDOCRINE: No complaint. NEUROLOGICAL: No complaint. PAST MEDICAL HISTORY: Coronary artery disease, gastroesophageal reflux disease, pneumonia, hyperthyroidism, osteoarthritis, T-cell lymphoma. PAST SURGICAL HISTORY: Left knee replacment and PTCA with stent x3. Tubal ligation, left breast scar removed, left knee replacement. SOCIAL HISTORY: Remote history of smoking. No drinking or drug use. FAMILY HISTORY: Mother with history of dementia. Father with history of colon cancer. Allergies to IBUPROFEN, SULFAMETHOXAZOLE and TRIMETHOPRIM. Medication include the patient is currently on ceftriaxone, Lovenox, Dilaudid, Zofran, Ditropan, Protonix. [place] Thyroid, vancomycin. On examination, blood pressure is 141/63 with a pulse of 57, temperature 98.2, she is 97% on room air. General description is a middle-age female, up in the bed in no distress. No tachypnea or accessory muscles on respiration use. HEENT examination showed no pallor or scleral icterus. Oral mucosa extremely dry. NECK: Trachea central, no thyromegaly. LUNGS: Unlabored breathing. Clear to auscultation anteriorly with a crackle. HEART: S1, S2 with regular rate and rhythm. ABDOMEN: Soft, no tenderness. No guarding or rigidity. EXTREMITIES: No edema of the feet. Examination of the Skin , no rashes and no mass Palpable. NEUROLOGICAL: Patient is awake, alert, oriented x3, mood and affect normal. LABS: Hemoglobin is 12.5, white count is 6.7 with a BUN of 11, creatinine 0.74. The enzymes are slightly elevated. DIAGNOSTIC IMPRESSION AND PLAN: Patient admitted to hospital with abdominal pain more likely secondary to gallstone related with slightly elevated liver enzyme, more likely from passage of a stone with possible cholangitis, now with positive blood culture with Coagulase negative Staph, more likely contamination; however, we need to wait for the final ID. If different than staph epi maybe related to the same source, though clinical suspicion remains to be low as the patient currently remains to be afebrile, slightly elevated white on admission that has normalized. Followup blood culture has been requested. PLAN: 1. Vanco can be discontinued. 2. As the patient is insisting on going home, she may be given a short course of oral Augmentin and close outpatient followup. 3. Will follow up with clinical condition and cultures to further adjust the medication as needed. Plan of care was discussed with the attending physician on the floor. JAYLEN
[2016-11-28] MEDS ORDERED: VANCOMYCIN TROUGH DUE 1 EACH MISC MISCELLANE ONE (05:00)
--- NOTE | 2016-11-28 14:38 | DS ---
DATE OF ADMISSION: 11/27/2016 DATE OF DISCHARGE: 11/27/2016 FINAL DIAGNOSES: 1. Acute cholecystitis secondary to gallstones. 2. Chronic gastritis. 3. Coronary artery disease with stent of the right coronary artery and circumflex in September 2016. 4. Chronic hypothyroidism. 5. Chronic urinary stress incontinence. 6. Obesity, body mass index of more than 36. HOSPITAL COURSE: This patient presented with abdominal pain, fever. Found to have cholecystitis with gallstones. Patient clinically did get better with fever coming down. No more abdominal pain. Because patient is on normal anticoagulation for the stent, Dr. Padgett decided not to any surgical intervention especially in the fact that patient is clinically doing better. CONSULTATION: 1. Dr. Padgett, General Surgery. 2. Dr. Connor from Cardiology. On examination, abdomen is soft, nontender. Noted that patient's LFTs had gone up, patient's Lipitor has been held. This can be resumed once the LFTs come down. Care was also discussed with Dr. Salgado from Infection Disease. It is felt that the blood cultures were likely contaminant. DISCHARGE MEDICATIONS: 1. Multivitamin 1 tablet p.o. daily. 2. Ditropan XL 50 mg p.o. q.h.s. 3. Protonix 40 mg p.o. q.h.s. 4. Nature-Throid 65 mg q.h.s. 5. Nitrostat 0.4 sublingual q.5 p.r.n. 6. Effient 10 mg p.o. daily. 7. Aspirin 81 mg p.o. daily. 8. Biotin 10,000 mcg p.o. daily. 9. Norvasc 2.5 mg p.o. daily. 10. Ceftin 500 mg p.o. b.i.d. for 14 tablets. Follow up with Dr. Wood on 12/11/2016; Dr. Padgett on 12/04/2016; Dr. Son on 11/30/2016; Dr. Salgado on 12/10/2016. Labs CBC, BMP in one week. Patient to hold off Lipitor until repeat LFTs are and then assessed by Dr. Son. DC planning more than 35 minutes.
--- NOTE | 2016-11-29 10:08 | CDI ---
In responding to this query, please exercise your independent professional judgment. The [facility] Coding Staff and Clinical Documentation Specialists appreciate your assistance in clarifying documentation, maintaining compliance with coding guidelines, accurately documenting patients condition and capturing severity of illness. The fact that a question is asked does not imply that any particular answer is desired or expected. Communication forms are a method of clarifying documentation and are not made part of the Legal Health Record. Thank you in advance for your clarification. Last Revision, September [address] [facility] [address] [place] [address] Documentation Clarification Form Date: 11/29/2016 9:58:00 AM From: Marisol Gu Phone: Admit Date: 11/27/2016 9:05:00 AM Patient Name: Laura Patel Visit Number: [id number] Discharge Date: [id number] Dr. Manuelito Wilkinson ED record documents UTI and given Rocephin. UA: cloudy, trace protein, positive nitrates, large leukocyte esterase, 7 RBC, 9 WBC No urine culture and sensitivity perforned. In your opinion what is the most clinically appropriate diagnosis for this patient? Urinary tract infection No urinary tract infection OTHER explanation of clinical finding Unable to determine (no explanation for clinical findings) Please document in your progress notes and discharge summary in order to capture severity of illness and risk of mortality. Include clinical findings that support your diagnosis. FYI: Press F11 to launch patient chart. SANDRINE Joseph, CCS, AHIMA Certified I-[employer] Shore Man/Mora Shore Man II JAYLEN
--- NOTE | 2017-01-10 19:25 | PN ---
ADDENDUM: PHYSICAL EXAMINATION: On examination, temperature 98.4, pulse 70, respirations 16, blood pressure 130/62, pulse ox 98% on room air. GENERAL APPEARANCE: Lying in bed, tired appearing. EYES: Pupils equal. Conjunctivae normal. NECK: JVD not raised. Mass not palpable. RESPIRATORY: Effort normal. LUNGS: Fair air entry. CARDIOVASCULAR: First and second sounds normal. No edema. ABDOMEN: Soft, minimal epigastric tenderness. No guarding or rigidity. Bowel sounds present. Liver and spleen not palpable. PSYCHIATRY: Alert and oriented x3. Mood and affect normal. Addendum to ASSESSMENT: 8. Worsening liver enzymes.
== END 2016-11-27 15:50 | disposition home or self-care (01) | DRG 446 ==
LOC: EC 04:15 → 5MS5E 09:05 → OBSVTOIN 11-27 09:05
PROVIDERS: ADMIT Hospitalist; ATTEND Hospitalist
DX: K80.00 Calculus of gallbladder with acute cholecystitis without obstruction (principal); E03.9 Hypothyroidism, unspecified; I25.10 Atherosclerotic heart disease of native coronary artery without angina pectoris; K29.50 Unspecified chronic gastritis without bleeding; N39.3 Stress incontinence (female) (male); K21.9 Gastro-esophageal reflux disease without esophagitis; I25.2 Old myocardial infarction; K44.9 Diaphragmatic hernia without obstruction or gangrene; M19.90 Unspecified osteoarthritis, unspecified site; Z87.891 Personal history of nicotine dependence; Z96.652 Presence of left artificial knee joint; Z95.5 Presence of coronary angioplasty implant and graft; Z85.72 Personal history of non-Hodgkin lymphomas; Z98.42 Cataract extraction status, left eye; Z98.41 Cataract extraction status, right eye; Z96.1 Presence of intraocular lens; K59.00 Constipation, unspecified; Z79.02 Long term (current) use of antithrombotics/antiplatelets; Z79.82 Long term (current) use of aspirin; Z79.899 Other long term (current) drug therapy
CPT/HCPCS: 36415; 74176; 76705; 80053; 81001; 82150; 83690; 84484; 85025; 87040; 87077; 87186; 96361; 96366; 96367; 96372; 96374; 96375; 96376; 99285

== ENCOUNTER → 2017-04-15 | Outpatient (CLI) | payer MEDICARE, OTHER ==
[2017-04-15 14:54] LABS: CH 31.2; CHCM 34.1; HDW 2.36; HGB 14.6 gm/dL (11.4-16.0); MCH 31.2 pg (25.0-35.0); MCV 91.8 fL (80.0-100.0); Mean Platelet Volume 6.8; RBC 4.68 m/uL (3.80-5.40); RDW 13.5 % (11.5-15.5)
[2017-04-15 15:01] LABS: Anion Gap 9 mmol/L; Blood Urea Nitrogen 20 mg/dL (7-17); Carbon Dioxide 26 mmol/L (22-30); Chloride 107 mmol/L (98-107); Non-African American GFR(MDRD) >60 (>60 ml/min/1.73 sqM); Potassium 4.7 mmol/L (3.5-5.1); Sodium 142 mmol/L (137-145)
== END | disposition home or self-care (01) ==
LOC: LABPAT 14:35
PROVIDERS: ATTEND Internal Medicine Interventional Cardiology
DX: Z01.812 Encounter for preprocedural laboratory examination (principal); I25.10 Atherosclerotic heart disease of native coronary artery without angina pectoris
CPT/HCPCS: 80051; 82565; 84520; 85027

== ENCOUNTER 2017-04-19 11:08 | Day surgery (SDC) | payer MEDICARE, OTHER ==
[2017-04-17 10:42] VITALS: BMI 33.5
[~2017-04-19 11:08] MED LIST: ALPRAZolam 0.25 MG TAB PO PRN; ALPRAZolam 0.5 MG TAB PO PRN; ASPIRIN 325 MG TAB PO STA; ATORVASTATIN 80 MG TAB PO STA; NITROGLYCERIN SL TABS 0.4 MG TAB SUBLINGUAL PRN; SODIUM CHLORIDE 0.9% 1,000 ML in EMPTY BAG 1 BAG IV ONE
[2017-04-19] MEDS ORDERED: VERAPAMIL 2.5 MG/ML 2 ML AMP ONE (11:40)
[2017-04-19] MEDS ORDERED: MIDAZOLAM 2 MG/2 ML VIAL ONE (11:40)
[2017-04-19] MEDS ORDERED: HEPARIN SODIUM 1,000 UNIT/ML VIAL ONE (11:40)
[2017-04-19] MEDS ORDERED: LIDOCAINE 2% INJ 20 MG/ML (20 ML MDV) ONE (11:40)
[2017-04-19 11:57] VITALS: PULSE 65; RESP 20
[2017-04-19] MEDS ORDERED: SODIUM CHLORIDE 0.9% 1,000 ML IV ONE (12:07)
[2017-04-19] MEDS ORDERED: LIDOCAINE 2% INJ 20 MG/ML SQ ONE (12:11)
[2017-04-19] MEDS: VERAPAMIL SYRINGE (5 MG/10 ML) INTRAARTER ONE ×2 (12:13→12:25)
[2017-04-19] MEDS ORDERED: MIDAZOLAM 2 MG/2 ML VIAL IV ONE (12:13)
[2017-04-19] MEDS ORDERED: HEPARIN SODIUM 1,000 UNIT/ML VIAL IV ONE (12:14)
[2017-04-19] MEDS ORDERED: HYDROmorphone 2 MG/ML 1 ML SYRINGE ONE (12:14)
[2017-04-19] MEDS ORDERED: IOHEXOL 350 MG/ML 125ML BOTTLE INTRATHECA ONE (12:21)
[2017-04-19] MEDS ORDERED: RX INFO: IV CONTRAST WAS GIVEN 1 EACH MISC MISCELLANE PRN (12:32)
[2017-04-19] MEDS ORDERED: SODIUM CHLORIDE 0.9% 1,000 ML IV SCH (12:45)
[2017-04-19 17:10] VITALS: BP 152/70
--- NOTE | 2017-04-19 22:29 | CC ---
DATE OF SERVICE: 04/19/2017 PERFORMING PHYSICIAN: Joselo Wood M.D., tree trimmer helper. PROCEDURES PERFORMED: 1. Selective right and left coronary angiogram. 2. Left heart catheterization. 3. Left ventriculography. INDICATION: This is a pleasant 66-year-old female patient who is known to have coronary artery disease and prior stenting of the RCA and left circumflex. She was experiencing intermittent episodes of chest discomfort consistent with angina. APPROACH: Right radial artery. COMPLICATIONS: None. LEVEL OF SEDATION: Moderate, with sedation length of 17 minutes. PROCEDURE DESCRIPTION: After obtaining informed consent, the patient was brought to the cardiac director of cath lab. The right radial artery was cannulated using micropuncture technique. The micropuncture wire passed easily. Then I placed a 6 Arabic sheath in the right radial artery. Subsequently I gave the patient 2 mg of Verapamil IA and 3000 units of heparin IV. After that I did selective right and left coronary angiogram using JR4 and JL3.5 catheters. After that I did left heart catheterization and LV gram using a 5 Arabic pigtail catheter. The procedure was completed without any complication. SELECTIVE CORONARY ANGIOGRAM: 1. The right coronary artery is a large-caliber vessel. It is a dominant vessel. The ostial RCA appeared to be diseased in the range of 50%. The mid RCA is stented and the stent is patent. The RCA distally appeared to have mild disease only and bifurcates into PDA and PLV branches; both are angiographically normal. 2. The left main is angiographically normal. It bifurcates into the left circumflex and left anterior descending artery. 3. The left circumflex is a large-caliber vessel. It is a non-dominant vessel. The proximal left circumflex appeared to have disease in the range of 50%. This is by the bifurcation. The first obtuse marginal branch is a large-caliber vessel; seems to be angiographically normal. The mid left circumflex is stented and the stent is patent. The left circumflex distally is angiographically normal. 4. The left anterior descending artery. The proximal LAD is angiographically normal. The mid LAD has a lesion that appeared to be in the range of 30% by the bifurcation of the second diagonal, and that seems to be angiographically normal. The first diagonal is angiographically normal. The LAD in the mid to distal portions is angiographically normal. HEMODYNAMICS: The left ventricular end-diastolic pressure was 15 mmHg. No gradient was identified across the aortic valve. Left ventriculography was performed in the DEXTER projection and using a power injection. Left ventricular systolic function is normal with ejection fraction about 50%. CONCLUSION: Patent stents in the mid RCA and mid left circumflex. POST-PROCEDURE MANAGEMENT: 1. Maximize medical treatment. 2. Follow up with the patient.
--- NOTE | 2017-04-19 22:31 | LTR ---
April 19, 2017 RE: Laura Patel Dear Dr. Son, Ms. Laura Patel underwent a heart catheterization that showed patent stents in the RCA and left circumflex. I want to thank you for allowing me to participate in her care. Please do not hesitate to call if you have any questions or concerns. Sincerely, CHRISTIAN GOLD MD
== END 2017-04-19 17:23 | disposition home or self-care (01) ==
LOC: CATHCVL 11:08
PROVIDERS: ATTEND Internal Medicine Interventional Cardiology
DX: I25.110 Atherosclerotic heart disease of native coronary artery with unstable angina pectoris (principal); Z95.5 Presence of coronary angioplasty implant and graft; I10 Essential (primary) hypertension; E78.5 Hyperlipidemia, unspecified; Z82.3 Family history of stroke; Z82.49 Family history of ischemic heart disease and other diseases of the circulatory system; Z79.82 Long term (current) use of aspirin; Z79.899 Other long term (current) drug therapy; Z88.1 Allergy status to other antibiotic agents; Z88.8 Allergy status to other drugs, medicaments and biological substances
CPT/HCPCS: 93458; 99152; C1769; C1894; J2001; J2250; J1644; Q9967

== ENCOUNTER 2023-12-10 18:50 | Emergency (ER) | payer MEDICARE, OTHER ==
[2023-12-10 19:06] VITALS: TEMP 98.8
--- NOTE | 2023-12-10 20:24 | ED ---
General Adult HPI - General Chief complaint: Recheck/Abnormal Lab/Rx Stated complaint: possible blood clot Time Seen by Provider: 12/10/23 19:19 Source: patient Mode of arrival: ambulatory Limitations: no limitations - History of Present Illness Initial comments: 72-year-old female with a past medical history significant for coronary artery disease status post stenting presenting to the ED with a chief complaint of left calf pain. Patient states that she was out shopping earlier today when she started to notice pain in her left calf. States pain worse with ambulation. States that she was seen at her PCPs office who instructed her to present to the ED to rule out DVT. No chest pain or shortness of breath. No tobacco use. No other complaints at this time. - Related Data Home Medications Medication Instructions Recorded Confirmed Multivitamins, Thera [Multivitamin 1 tab PO DAILY 09/19/16 04/17/17 (formulary)] Oxybutynin Chloride [Ditropan XL] 15 mg PO HS 09/19/16 04/17/17 Pantoprazole Sodium [Protonix] 40 mg PO HS 09/19/16 04/17/17 Thyroid,Pork [Nature-Throid] 65 mg PO HS 09/19/16 04/19/17 Aspirin EC [Ecotrin Low Dose] 81 mg PO DAILY 10/14/16 04/19/17 Biotin 10,000 mcg PO DAILY 10/14/16 04/17/17 amLODIPine BESYLATE [Norvasc] 2.5 mg PO DAILY 11/25/16 04/17/17 LORazepam [Ativan] 0.5 mg PO DAILY PRN 04/17/17 04/19/17 Progesterone, Micronized 100 mg PO DAILY 04/17/17 04/19/17 [Progesterone] Previous Rx's Medication Instructions Recorded Nitroglycerin Sl Tabs [Nitrostat] 0.4 mg SUBLINGUAL Q5M PRN #25 tab 09/23/16 Prasugrel [Effient] 10 mg PO DAILY #30 tab 09/23/16 Allergies Allergy/AdvReac Type Severity Reaction Status Date / Time amoxicillin [From Augmentin] Allergy Rash/Hives Verified 12/10/23 19:06 clavulanic acid Allergy Rash/Hives Verified 12/10/23 19:06 [From Augmentin] ibuprofen Allergy Itching Verified 12/10/23 19:06 lisinopril Allergy SEVERE Verified 12/10/23 19:06 HEADACHE sulfamethoxazole Allergy Rash/Hives Verified 12/10/23 19:06 [From Bactrim] trimethoprim [From Bactrim] Allergy Rash/Hives Verified 12/10/23 19:06 Review of Systems ROS Statement: Those systems with pertinent positive or pertinent negative responses have been documented in the HPI. ROS Other: All systems not noted in ROS Statement are negative. Past Medical History Past Medical History: Coronary Artery Disease (CAD), Cancer, GERD/Reflux, Myocardial Infarction (MS), Osteoarthritis (OA), Thyroid Disorder Additional Past Medical History / Comment(s): 09/19/16 coronary stents x3, T- cell lymphoma, 10/08/16 left knee drained, GALLSTONES Last Myocardial Infarction Date:: 09/19/16 History of Any Multi-Drug Resistant Organisms: None Reported Past Surgical History: Joint Replacement, Tubal Ligation, Uterine Ablation Additional Past Surgical History / Comment(s): left knee REPLACEMENT, LEFT KNEE DRAINED, left shoulder, left breast SX TO removed scar tissue from PREVIOUS breast reduction. ERICKA CATARACTS WITH Lens implants. Novasure. EGD Past Anesthesia/Blood Transfusion Reactions: No Reported Reaction Past Psychological History: Anxiety Smoking Status: Former smoker Past Alcohol Use History: Rare Past Drug Use History: None Reported - Past Family History Mother Family Medical History: Dementia Father Family Medical History: Cancer Additional Family Medical History / Comment(s): colon-surgery General Exam Limitations: no limitations General appearance: alert, in no apparent distress Eye exam: Present: normal appearance ENT exam: Present: normal exam Neck exam: Present: normal inspection Respiratory exam: Present: normal lung sounds bilaterally Cardiovascular Exam: Present: regular rate, normal rhythm GI/Abdominal exam: Present: soft Extremities exam: Present: other (Strength and sensation equal and intact in bilateral lower extremities. DP/PT pulses 2+. Denies pain upon squeezing the calf. Negative Homans' sign. Palpable mass in the patient's knee and palpation of this reproduces pain) Neurological exam: Present: alert, oriented X3 Skin exam: Present: warm, dry Course Vital Signs 12/10/23 19:02 Temperature 98.8 F Pulse Rate 72 Respiratory 20 Rate Blood Pressure 144/78 O2 Sat by Pulse 98 Oximetry Medical Decision Making - Medical Decision Making Was pt. sent in by a medical professional or institution (TRENT Santos, COMPUTER HELP DESK SPECIALIST, urgent care, hospital, or [facility]...) When possible be specific @ -Patient sent in from her primary care provider's office. Did you speak to anyone other than the patient for history (EMS, parent, family, police, friend...)? What history was obtained from this source @ -No Did you review nursing and triage notes (agree or disagree)? Why? @ -I reviewed and agree with nursing and triage notes Were old charts reviewed (outside hosp., previous admission, EMS record, old EKG, old radiological studies, urgent care reports/EKG's, [facility] records)? Report findings @ -No old charts were reviewed Differential Diagnosis (chest pain, altered mental status, abdominal pain women, abdominal pain men, vaginal bleeding, weakness, fever, dyspnea, syncope, headache, dizziness, GI bleed, back pain, seizure, CVA, palpatations, mental health, musculoskeletal)? @ -Differential Musculoskeletal Muscular strain, contusion, ligament sprain, fracture, arthritis, septic arthritis, bursitis, cellulitis, muscle spasm, nerve compression, DVT, arterial occlusion, herpes zoster, electrolyte abnormality, tumor.... This is not meant to be in all inclusive list EKG interpreted by me (3pts min.). @ -As above X-rays interpreted by me (1pt min.). @ -None done CT interpreted by me (1pt min.). @ -None done U/S interpreted by me (1pt. min.). @ -Venous duplex of the left lower extremity showed no evidence of DVT however does show a popliteal cyst measuring up to 6 cm. What testing was considered but not performed or refused? (CT, X-rays, U/S, labs)? Why? @ -None What meds were considered but not given or refused? Why? @ -None Did you discuss the management of the patient with other professionals (professionals i.e. TRENT Santos, COMPUTER HELP DESK SPECIALIST, lab, RT, psych nurse, social organization professor, computer salesperson retail, teacher, disability insurance hearing officer, nurse case manager)? Give summary @ -No Was smoking cessation discussed for >3mins.? @ -No Was critical care preformed (if so, how long)? @ -No Were there social determinants of health that impacted care today? How? (Homelessness, low income, unemployed, alcoholism, drug addiction, transportation, low edu. Level, literacy, decrease access to med. care, shelter, rehab)? @ -No Was there de-escalation of care discussed even if they declined (Discuss DNR or withdrawal of care, Hospice)? DNR status @ -No What co-morbidities impacted this encounter? (DM, HTN, Smoking, COPD, CAD, Cancer, CVA, ARF, Chemo, Hep., AIDS, mental health diagnosis, sleep apnea, morbid obesity)? @ -None Was patient admitted / discharged? Hospital course, mention meds given and r oute, prescriptions, significant lab abnormalities, going to OR and other pertinent info. @ -None 72-year-old female sent in by her PCP secondary to left calf pain for 1 day to rule out DVT. Ultrasound at this time revealed no evidence of DVT however did reveal a Clements's cyst measuring up to 6 cm. On examination patient did have reproduction of her pain upon palpation of this. Advised supportive care and follow-up with her PCP. Discharged home in stable condition. Discussed return precautions with patient who verbalized agreement. Undiagnosed new problem with uncertain prognosis? @ -No Drug Therapy requiring intensive monitoring for toxicity (Heparin, Nitro, Insulin, Cardizem)? @ -No Were any procedures done? @ -No Diagnosis/symptom? @ -Clements's cyst Acute, or Chronic, or Acute on Chronic? @ -Acute Uncomplicated (without systemic symptoms) or Complicated (systemic symptoms)? @ -Uncomplicated Side effects of treatment? @ -No Exacerbation, Progression, or Severe Exacerbation? @ -No Poses a threat to life or bodily function? How? (Chest pain, USA, MS, pneumonia, PE, COPD, DKA, ARF, appy, cholecystitis, CVA, Diverticulitis, Homicidal, Suicidal, threat to staff... and all critical care pts) @ -No Disposition Clinical Impression: Popliteal cyst Disposition: HOME SELF-CARE Condition: Good Instructions (If sedation given, give patient instructions): Clements Cyst (ED) Additional Instructions: Please return to the Emergency Department if symptoms worsen or any other concerns. Please follow-up with your primary care provider. Is patient prescribed a controlled substance at d/c from ED?: No Referrals: Nate Boudreaux PAC [REFERRING] - 1-2 days Time of Disposition: 21:16
--- NOTE | 2023-12-10 20:52 | US ---
EXAMINATION TYPE: US venous doppler duplex LE LT DATE OF EXAM: 12/10/2023 8:42 PM COMPARISON: NONE CLINICAL INDICATION: Female, 72 years old with history of r/o dvt; pain in calf after walking today. No hx of DVT SIDE PERFORMED: Left TECHNIQUE: The lower extremity deep venous system is examined utilizing real time linear array sonog armand with graded compression, doppler sonography and color-flow sonography. VESSELS IMAGED: Common Femoral Vein Deep Femoral Vein Greater Saphenous Vein * Femoral Vein Popliteal Vein Small Saphenous Vein * Proximal Calf Veins (* superficial vessels) Left Leg: No evidence for DVT Grayscale, color doppler, spectral doppler imaging performed of the deep veins of the lower extremiti es. There is normal flow, compressibility, vascular waveforms. Popliteal fossa cyst measuring up to 6 cm. IMPRESSION: 1. No evidence of deep venous thrombosis. 2. Popliteal fossa cyst.
[2023-12-10 21:49] VITALS: BP 155/78; PULSE 60; RESP 16
== END 2023-12-10 21:27 | disposition home or self-care (01) ==
LOC: EC 18:50
DX: M71.22 Synovial cyst of popliteal space [Baker], left knee (principal); I25.10 Atherosclerotic heart disease of native coronary artery without angina pectoris; I25.2 Old myocardial infarction; K21.9 Gastro-esophageal reflux disease without esophagitis; E07.9 Disorder of thyroid, unspecified; F41.9 Anxiety disorder, unspecified; M19.90 Unspecified osteoarthritis, unspecified site; Z79.890 Hormone replacement therapy; Z79.899 Other long term (current) drug therapy; Z88.0 Allergy status to penicillin; Z88.1 Allergy status to other antibiotic agents; Z88.2 Allergy status to sulfonamides; Z88.6 Allergy status to analgesic agent; Z88.8 Allergy status to other drugs, medicaments and biological substances; Z95.5 Presence of coronary angioplasty implant and graft; Z87.891 Personal history of nicotine dependence
CPT/HCPCS: 99283

== ENCOUNTER 2024-07-29 09:54 | Day surgery (SDC) | payer MEDICARE, OTHER ==
[2024-07-27 15:56] VITALS: BMI 33.6
[2024-07-29 11:04] VITALS: RESP 18; TEMP 97.9
[2024-07-29] MEDS: IV FLUID CONTINUATION 1,000 ML IV ONE (11:10)
[2024-07-29] MEDS: LACTATED RINGERS 1,000 ML IV SCH (11:12)
[2024-07-29] MEDS ORDERED: PROPOFOL 10 MG/ML 20 ML VIAL IV ONE (11:58)
--- NOTE | 2024-07-29 12:16 | P.PCN ---
Date of Procedure: 07/29/24 Procedure(s) Performed: BRIEF HISTORY: Patient is a 73-year-old pleasant white female scheduled for an elective colonoscopy as a part of for colon cancer and family history of colon cancer. Dad was diagnosed with colon cancer at age 60. PROCEDURE PERFORMED: Colonoscopy. PREOPERATIVE DIAGNOSIS: Screening for colon cancer and family history of colon cancer. IV sedation per Anesthesia. PROCEDURE: After informed consent was obtained, the patient, was brought into the endoscopy unit. IV sedation was administered by Anesthesia under continuous monitoring. Digital rectal examination was normal. Initially the Olympus CF-160 flexible video colonoscope was then inserted in the rectum, gradually advanced into the cecum without any difficulty. Careful examination was performed as the scope was gradually being withdrawn. Ileocecal valve and the appendiceal orifice were visualized and appeared normal. Prep was excellent. Mucosa of the cecum, ascending colon, transverse colon, descending colon, sigmoid colon, and rectum appeared normal. Katter sigmoid diverticulosis. Retroflexion was performed in the rectum and no lesions were seen. The patient tolerated the procedure well. IMPRESSION: Normal-appearing colon from rectum to cecum with no evidence of colorectal neoplasia. Scattered sigmoid diverticulosis. RECOMMENDATIONS: Findings of this examination were discussed with the patient as well as her family. She was advised to have repeat screening colonoscopy in 5 years because of the family history of colon cancer.
[2024-07-29 12:46] VITALS: BP 187/71; PULSE 54
== END 2024-07-29 13:13 | disposition home or self-care (01) ==
LOC: ORWHC2ENDO 09:54
PROVIDERS: ATTEND Internal Medicine Gastroenterology
DX: Z80.0 Family history of malignant neoplasm of digestive organs